=== PATIENT | male | born 1935 | race Caucasian/White ===

== ENCOUNTER 2019-12-15 19:10 | Inpatient (IN) | payer BC ==
[~2019-12-15] VITALS: Ht 172.7 cm; Wt 72.6 kg
--- NOTE | 2019-12-15 19:16 | NUR ---
Patient BIB [facility] from [facility]. Per report 911 was called due to being unhappy with care at the SNF. Patient upon arrival A/Ox1, no distress noted. DR Marino at bedside.
[2019-12-15] MEDS ORDERED: INSU100V39 SQ (19:30)
[2019-12-15] MEDS ORDERED: TIMO1DRO2 EACHEYE (19:30)
[2019-12-15] MEDS ORDERED: CARB1TAB19 PO (19:30)
[2019-12-15] MEDS ORDERED: LATA7.5D EACHEYE (19:30)
[2019-12-15] MEDS ORDERED: DOCU-141 PO (19:30)
[2019-12-15] MEDS ORDERED: ACET-2154 PO (19:30)
[2019-12-15] MEDS ORDERED: QUET25TA PO (19:30)
[2019-12-15 19:55] LABS: BASOPHILS # (AUTO) 0.1 K/uL (0.0-8.0); BASOPHILS % (AUTO) 0.8 % (0.0-2.0); EOSINOPHILS # (AUTO) 0.2 K/uL (0.0-0.7); EOSINOPHILS % (AUTO) 1.9 % (0.0-7.0); HEMATOCRIT 37.2 % (36.7-47.1); HEMOGLOBIN 12.5 g/dL (12.5-16.3); LYMPHOCYTES % (AUTO) 9.3 % (20.5-51.5); MEAN CORPUSCULAR HEMOGLOBIN 32.5 uug (23.8-33.4); MEAN CORPUSCULAR HGB CONC 34 g/dL (32.5-36.3); MONOCYTES # (AUTO) 1.3 K/uL (2.0-10.0); MONOCYTES % (AUTO) 11.9 % (0.0-11.0); NEUTROPHILS # (AUTO) 8.1 K/uL (1.8-8.9); NEUTROPHILS % (AUTO) 76.1 % (38.5-71.5); PLATELET COUNT (AUTO) 244 K/uL (152-348); RED BLOOD CELL COUNT(AUTO) 3.83 MIL/uL (4.06-5.63); WHITE BLOOD COUNT (AUTO) 10.6 K/uL (3.6-10.2)
[2019-12-15 20:01] LABS: CARBON DIOXIDE 25 mmol/L (21-32); CHLORIDE 104 mmol/L (98-107); GLUCOSE 160 mg/dL (74-106); POTASSIUM 3.9 mmol/L (3.5-5.1); UREA NITROGEN, BLOOD 45 mg/dL (7-18)
[2019-12-15 20:06] LABS: ALANINE AMINOTRANSFERASE 17 U/L (16-63); ALKALINE PHOSPHATASE 61 U/L (50-136); ASPARTATE AMINOTRANSFERASE 21 U/L (15-37); BILIRUBIN,DIRECT 0.1 mg/dL (0.0-0.2); BILIRUBIN,TOTAL 0.5 mg/dL (0.2-1.0); TOTAL PROTEIN, SERUM 7.2 g/dL (6.4-8.2)
[2019-12-15] MEDS ORDERED: IV NORMAL SALINE 1000 ML BAG IV ONE (20:15)
--- NOTE | 2019-12-15 20:20 | NUR ---
Paged Epic panel. Waiting for DR Box to call back
[2019-12-15 20:26] LABS: THYROID STIMULATING HORMONE 1.965 mIU/mL (0.358-3.740)
--- NOTE | 2019-12-15 20:53 | NUR ---
DR Rodriguez has not return call. Repaged DR Rodriguez.
--- NOTE | 2019-12-15 20:56 | NUR ---
Dr Marino speaking with Dr Box.
[2019-12-15] MEDS ORDERED: ONDANSETRON 4 MG/2 ML VIAL IV PRN (21:30)
--- NOTE | 2019-12-15 22:15 | NUR ---
TRansfered to 3rd floor Tele via [employer].
[2019-12-15] MEDS: IV 1/2NS 1000 ML 1,000 ML IV PRN (22:18)
--- NOTE | 2019-12-15 22:25 | NUR ---
Received patient from the ED. Patient is AAOX1 to self. Vital signs WNL, patient is on RA. marketing strategy analyst placed. Patient exhibits no sign of acute distress. Bed alarm on and Safety precautions initiated. Will continue to monitor.
[2019-12-15] MEDS: QUETIAPINE FUMARATE 25 MG TABLET PO SCH (22:30)
[2019-12-15 22:47] VITALS: BP 117/64
[2019-12-16] VITALS: BP 110/68
[2019-12-16 03:41] LABS: *BILIRUBIN,URIN NEGATIVE (NEGATIVE); *BLOOD, URINE NEGATIVE (NEGATIVE); *CLARITY,URINE CLEAR (CLEAR); *COLOR,URINE YELLOW (YELLOW); *KETONES,URINE NEGATIVE (NEGATIVE); *UROBILINOGEN,URINE 0.2 E.U./dl (NORMAL); LEUKOCYTE ESTERASE ,URINE NEGATIVE (NEGATIVE); NITRITE, URINE NEGATIVE (NEGATIVE); PH,URINE 5.5 (5.0-8.0); UGLUCOSE NEGATIVE (NEGATIVE)
[2019-12-16 04:00] VITALS: BP 123/63
--- NOTE | 2019-12-16 06:36 | NUR ---
Patient is AAOX1. No signs of acute distress. Denies pain or SOB. Right AC patent and intact, 0.45% NS infusing at 70mL/hr. Bed alarm on and in the lowest position. Needs attended to and met. Safety measures maintained and endorsed to oncoming nurse.
[2019-12-16 06:50] LABS: BASOPHILS # (AUTO) 0.1 K/uL (0.0-8.0); BASOPHILS % (AUTO) 1.2 % (0.0-2.0); EOSINOPHILS # (AUTO) 0.3 K/uL (0.0-0.7); EOSINOPHILS % (AUTO) 3.6 % (0.0-7.0); HEMATOCRIT 32.3 % (36.7-47.1); HEMOGLOBIN 11.2 g/dL (12.5-16.3); LYMPHOCYTES # (AUTO) 1.3 K/uL (20.0-40.0); LYMPHOCYTES % (AUTO) 18.8 % (20.5-51.5); MEAN CORPUSCULAR HEMOGLOBIN 33.4 uug (23.8-33.4); MEAN CORPUSCULAR HGB CONC 35 g/dL (32.5-36.3); MEAN CORPUSCULAR VOLUME 96.4 fL (73.0-96.2); MONOCYTES # (AUTO) 0.9 K/uL (2.0-10.0); MONOCYTES % (AUTO) 13.2 % (0.0-11.0); NEUTROPHILS # (AUTO) 4.5 K/uL (1.8-8.9); NEUTROPHILS % (AUTO) 63.2 % (38.5-71.5); PLATELET COUNT (AUTO) 194 K/uL (152-348); RED BLOOD CELL COUNT(AUTO) 3.35 MIL/uL (4.06-5.63); WHITE BLOOD COUNT (AUTO) 7.1 K/uL (3.6-10.2)
[2019-12-16] MEDS: PANTOPRAZOLE SODIUM 40 MG TABLET.DR PO SCH (06:56)
[2019-12-16 06:57] LABS: BILIRUBIN,TOTAL 0.5 mg/dL (0.2-1.0); CREATININE 1.3 mg/dL (0.6-1.3); MAGNESIUM 1.8 mg/dL (1.8-2.4); POTASSIUM 3.3 mmol/L (3.5-5.1); TOTAL PROTEIN, SERUM 5.9 g/dL (6.4-8.2)
--- NOTE | 2019-12-16 07:30 | NUR ---
Received patient in bed awake and confused. Patient needs constant reorientation. Patient shows no sign of respiratory distress at this time, saturating well on room air. IV intact and patent, 20 gauge on left AC. Safety measures in place, bed in lowest position, locked and alert activated. Call light and patients belongings are within reach. Will continue to monitor and observe.
[2019-12-16] MEDS: DOCUSATE SODIUM 100 MG CAPSULE PO SCH ×2 (08:14→18:16)
[2019-12-16] MEDS: CARBIDOPA/LEVODOPA 10-100MG TABLET PO SCH ×2 (08:14→18:16)
[2019-12-16] MEDS: QUETIAPINE FUMARATE 25 MG TABLET PO SCH ×2 (08:14→20:12)
[2019-12-16] MEDS ORDERED: TIMOLOL MALEATE 0.5% OPHT DROP 5 ML BOTTLE OP SCH (09:00)
[2019-12-16] MEDS ORDERED: LATANOPROST OPHT DROP 2.5 ML BOTTLE OP SCH (09:00)
--- NOTE | 2019-12-16 09:45 | NUR ---
Patient confused and uncooperative, he bit the tubing for his IV. Dr Adames made aware he recommends a one on one. Nursing office made aware and comfort restraints ordered. Will continue to monitor and observe
[2019-12-16] MEDS ORDERED: POTASSIUM CHLORIDE 20 MEQ POWDER PACKET PO ONE (10:15)
--- NOTE | 2019-12-16 10:45 | NUR ---
Comfort restraints place and patient is tolerating well, will continue to monitor and observe.
[2019-12-16 11:36] VITALS: BP 107/69
[2019-12-16] MEDS: TIMOLOL MALEATE 0.5% OPHT DROP 5 ML BOTTLE EACHEYE SCH ×2 (13:30→18:16)
[2019-12-16 16:00] VITALS: BP 144/68
[2019-12-16 19:00] VITALS: BP 126/67
--- NOTE | 2019-12-16 19:30 | NUR ---
Received patient awake and confused in geriatric chair. Sitter in room at bedside. Patient currently has restraint mittens on. Patient shows no sign of acute distress, no complaints of pain or SOB. Right hand IV intact and patent. Safety measures initiated and will continue to monitor and observe.
--- NOTE | 2019-12-16 19:57 | NUR ---
PATIENT CONFUSED THROUGH OUT SHIFT; PATIENT NOT DIRECTABLE DUE TO MENTAL STATUS. PATIENT PULLED IV AND REPLACED. PATIENT WITH STABLE VITAL SIGNS. ; REPORT GIVEN TO ONCOMING NURSE.
--- NOTE | 2019-12-16 20:02 | NUR ---
Patients called in regards to an update. She stated that she wants her to remain in the hospital until December 17 for their next doctors appointment. I will endorse to the Charge nurse to pass it on.
[2019-12-16] MEDS: LATANOPROST OPHT DROP 2.5 ML BOTTLE EACHEYE SCH (20:13)
[2019-12-16] MEDS: TEMAZEPAM 7.5 MG CAPSULE PO PRN (21:06)
[2019-12-17] MEDS: IV 1/2NS 1000 ML 1,000 ML IV PRN ×2 (02:01→15:26)
[2019-12-17 04:00] VITALS: BP 135/71
[2019-12-17] MEDS: PANTOPRAZOLE SODIUM 40 MG TABLET.DR PO SCH (06:03)
--- NOTE | 2019-12-17 06:18 | NUR ---
Patient sitting in the leonardo chair with sitter at chair side. The patient did not sleep well last night and refused PRN medications. Vital signs stable. No signs of acute distress. No complaint of pain or SOB. Patient is currently cooperative and compliant with morning medications. Needs were met and attended to. Safety measures endorsed to oncoming staff.
[2019-12-17 06:38] LABS: BASOPHILS # (AUTO) 0.1 K/uL (0.0-8.0); BASOPHILS % (AUTO) 1.4 % (0.0-2.0); EOSINOPHILS # (AUTO) 0.2 K/uL (0.0-0.7); EOSINOPHILS % (AUTO) 3.5 % (0.0-7.0); HEMATOCRIT 34.2 % (36.7-47.1); HEMOGLOBIN 11.7 g/dL (12.5-16.3); LYMPHOCYTES # (AUTO) 1.1 K/uL (20.0-40.0); LYMPHOCYTES % (AUTO) 15.5 % (20.5-51.5); MEAN CORPUSCULAR HEMOGLOBIN 33.1 uug (23.8-33.4); MEAN CORPUSCULAR HGB CONC 34 g/dL (32.5-36.3); MEAN CORPUSCULAR VOLUME 96.7 fL (73.0-96.2); MONOCYTES % (AUTO) 14.1 % (0.0-11.0); NEUTROPHILS # (AUTO) 4.5 K/uL (1.8-8.9); NEUTROPHILS % (AUTO) 65.5 % (38.5-71.5); PLATELET COUNT (AUTO) 242 K/uL (152-348); RED BLOOD CELL COUNT(AUTO) 3.54 MIL/uL (4.06-5.63); WHITE BLOOD COUNT (AUTO) 6.9 K/uL (3.6-10.2)
[2019-12-17 06:49] LABS: CREATININE 1.3 mg/dL (0.6-1.3); POTASSIUM 3.8 mmol/L (3.5-5.1)
[2019-12-17 08:00] VITALS: BP 135/75
[2019-12-17] MEDS: QUETIAPINE FUMARATE 25 MG TABLET PO SCH ×2 (08:04→20:00)
[2019-12-17] MEDS: DOCUSATE SODIUM 100 MG CAPSULE PO SCH ×2 (08:04→16:04)
[2019-12-17] MEDS: CARBIDOPA/LEVODOPA 10-100MG TABLET PO SCH ×2 (08:04→16:04)
[2019-12-17] MEDS: TIMOLOL MALEATE 0.5% OPHT DROP 5 ML BOTTLE EACHEYE SCH ×2 (09:10→16:04)
[2019-12-17] MEDS ORDERED: LORAZEPAM 2 MG/1 ML VIAL IV ONE (10:30)
[2019-12-17] MEDS ORDERED: HALOPERIDOL LACTATE 5 MG/1 ML VIAL IM ONE (10:45)
--- NOTE | 2019-12-17 10:48 | NUR ---
pt is yelling cursing to the staff and hitting the sitter per md orders Haldol 5mg im given
--- NOTE | 2019-12-17 15:00 | NUR ---
Social Work Note This casualty underwriter was notified of 's request to speak to a clinical social work aide. This casualty underwriter spoke with Ethel ) who said she wants her to get [employer]. Advised her that this clinical social work aide would notify the [employer] template worker, Vanessa Ramos ([phone]). A message was left on Vanessa's voicemail at [phone]. This clinical social work aide also provided the patient's with her contact number in the even she needs additional support or information.
--- NOTE | 2019-12-17 16:57 | NUR ---
pt is very combative and yelling screaming and bitting the sitter per md orders Geodon 10 mg im given
[2019-12-17] MEDS ORDERED: ZIPRASIDONE MESYLATE 20 MG VIAL IM ONE (17:00)
[2019-12-17 18:11] VITALS: BP 142/78
[2019-12-17] MEDS ORDERED: ZIPRASIDONE MESYLATE 20 MG VIAL IM PRN (18:15)
--- NOTE | 2019-12-17 19:30 | NUR ---
RECEIVED PT IN NO ACUTE DISTRESS. SITTER AT BEDSIDE FOR SAFETY. IV INTACT .SAFETY AND COMFORT PROVIDED. WILL CONTINUE TO MONITOR.
[2019-12-17 20:00] VITALS: BP 132/73
[2019-12-17] MEDS: LATANOPROST OPHT DROP 2.5 ML BOTTLE EACHEYE SCH (20:00)
[2019-12-17] MEDS: ACETAMINOPHEN 325 MG TABLET PO PRN (20:00)
[2019-12-17] MEDS: TEMAZEPAM 7.5 MG CAPSULE PO PRN (22:05)
[2019-12-18] MEDS: ACETAMINOPHEN 325 MG TABLET PO PRN (04:35)
[2019-12-18] MEDS: PANTOPRAZOLE SODIUM 40 MG TABLET.DR PO SCH (06:08)
--- NOTE | 2019-12-18 06:10 | NUR ---
TYLENOL PRN WASTED IN THE MEDICATION BIN. ANOTHER RN WITNESS IT.
--- NOTE | 2019-12-18 06:14 | NUR ---
PT IN NO ACUTE DISTRESS. PT RAMBLING ABOUT STUFF. SITTER AT BEDSIDE FOR SAFETY. PRESCRIBED MEDICATION GIVEN AND PT TOLERATED IT WELL.PT REFUSED HIS PROTONIX. PT CONFUSED. NEEDS REORIENTATION. PT HAD AN EPISODE THAT HE DOESN'T WANT ANYONE ON HIS ROOM AND TOLD THE SITTER AND RN TO GO OUT OF HIS ROOM. SAFETY AND COMFORT PROVIDED. ALL NEEDS ARE MET. WILL ENDORSE TO INCOMING NURSE FOR CONTINUITY OF CARE.
--- NOTE | 2019-12-18 06:23 | NUR ---
PT REFUSING FOR STAFF TO GET HIS VITAL SIGNS.
[2019-12-18 06:43] LABS: BASOPHILS # (AUTO) 0.1 K/uL (0.0-8.0); BASOPHILS % (AUTO) 1.2 % (0.0-2.0); EOSINOPHILS # (AUTO) 0.3 K/uL (0.0-0.7); EOSINOPHILS % (AUTO) 4.9 % (0.0-7.0); HEMATOCRIT 37.7 % (36.7-47.1); HEMOGLOBIN 12.8 g/dL (12.5-16.3); LYMPHOCYTES % (AUTO) 14.3 % (20.5-51.5); MEAN CORPUSCULAR HGB CONC 34 g/dL (32.5-36.3); MEAN CORPUSCULAR VOLUME 97.3 fL (73.0-96.2); MONOCYTES % (AUTO) 13.9 % (0.0-11.0); NEUTROPHILS # (AUTO) 4.6 K/uL (1.8-8.9); NEUTROPHILS % (AUTO) 65.7 % (38.5-71.5); PLATELET COUNT (AUTO) 231 K/uL (152-348); RED BLOOD CELL COUNT(AUTO) 3.87 MIL/uL (4.06-5.63); WHITE BLOOD COUNT (AUTO) 7.1 K/uL (3.6-10.2)
[2019-12-18] MEDS: IV 1/2NS 1000 ML 1,000 ML IV PRN (06:47)
--- NOTE | 2019-12-18 06:50 | NUR ---
Talked with Dr. Sapp regarding daughter or wants the pt go to [facility] for neurosurgeon appt. said he will call the family member.
[2019-12-18 06:52] LABS: CREATININE 1.1 mg/dL (0.6-1.3); POTASSIUM 3.2 mmol/L (3.5-5.1)
[2019-12-18] MEDS ORDERED: POTASSIUM CHLORIDE 20 MEQ TAB.PRT.SR PO ONE (07:00)
[2019-12-18] MEDS: CARBIDOPA/LEVODOPA 10-100MG TABLET PO SCH ×2 (08:10→16:26)
[2019-12-18] MEDS: DOCUSATE SODIUM 100 MG CAPSULE PO SCH ×2 (08:11→16:26)
[2019-12-18] MEDS: QUETIAPINE FUMARATE 25 MG TABLET PO SCH (08:11)
[2019-12-18] MEDS: TIMOLOL MALEATE 0.5% OPHT DROP 5 ML BOTTLE EACHEYE SCH ×2 (08:22→16:26)
[2019-12-18 08:59] VITALS: BP 141/69
[2019-12-18 14:00] VITALS: BP 126/78
--- NOTE | 2019-12-18 17:00 | NUR ---
pt refused to take his wound picture made aware
--- NOTE | 2019-12-18 17:23 | NUR ---
dc orders received noted and carried out,dc heplock per md orders.dc instruction given to pt and daughter,pt left the facility via ambulances in stable condition
== END 2019-12-18 17:30 | disposition home health service (06) | DRG 683 ==
LOC: ER 19:10 → TELE3 21:57 → MEDSURG3 12-16 10:00
PROVIDERS: ADMIT Family Medicine; ATTEND Family Medicine
DX: N17.0 Acute kidney failure with tubular necrosis (principal); E44.1 Mild protein-calorie malnutrition; G20 Parkinson's disease; F02.80 Dementia in other diseases classified elsewhere, unspecified severity, without behavioral disturbance, psychotic disturbance, mood disturbance, and anxiety; H40.9 Unspecified glaucoma; D72.829 Elevated white blood cell count, unspecified; E11.9 Type 2 diabetes mellitus without complications; E87.6 Hypokalemia; Z79.4 Long term (current) use of insulin; E88.09 Other disorders of plasma-protein metabolism, not elsewhere classified; R26.9 Unspecified abnormalities of gait and mobility; E86.9 Volume depletion, unspecified; Z68.24 Body mass index [BMI] 24.0-24.9, adult; R29.6 Repeated falls
CPT/HCPCS: 36415; 70030-TC; 71045; 83735; 84100; 84443; 85025; 85730; 87086; 93005; A4663; G0378; J1630; J3486; J3490; J7030; U0003-CS